=== PATIENT | female | born 1985 | race Caucasian/White ===

== ENCOUNTER 2020-07-03 17:27 | Emergency (ER) | payer OTHER, SELFPAY ==
[2020-07-03 17:38] VITALS: BP 120/76; PULSE 104; RESP 20; TEMP 37.1; O2SAT 98
--- NOTE | 2020-07-03 17:43 | ED.EYEPROB ---
HPI - Eye Problem General Chief complaint: Eye Problems Stated complaint: upper respiratory infection Time Seen by Provider: 07/03/20 17:28 Source: patient Mode of arrival: ambulatory Limitations: no limitations History of Present Illness HPI Narrative: 34-year-old female presents to [facility] with complaints of right eye redness, irritation and purulent drainage since yesterday. Patient does not wear contacts or glasses. Patient denies injury to her eye. Patient reports that she has had a runny nose and postnasal drainage for the past few days. Patient denies cough, shortness of breath, wheezing, fever, body aches, chills, nausea, vomiting or diarrhea. MD chief complaint: eye redness Onset (ago): day(s) (1) Duration: constant Location: right eye Eye Symptoms: redness and discharge Mechanism: none Associated symptoms: none Treatments Prior to Arrival: none Related Data Home Medications Medication Instructions Recorded Confirmed sertraline 50 mg DAILY 07/03/20 07/03/20 Allergies Allergy/AdvReac Type Severity Reaction Status Date / Time No Known Allergies Allergy Unknown Unverified 05/21/19 16:21 Review of Systems Constitutional: Constitutional: Denies chills, Denies fever(s) and Denies weakness Eyes: Comments: right eye erythema, irritation and drainage ENT: Denies dysphagia, Denies vertigo, Denies dizziness, Denies nasal congestion and Denies sore throat Comments: rhinnorhea Cardiovascular: Cardiovascular: Denies chest pain, Denies rapid heart rate, Denies radiating jaw, neck or arm pain and Denies slow heart rate Respiratory: Respiratory: Denies chest congestion, Denies cough and Denies dyspnea Gastrointestinal: Gastrointestinal: Denies abdominal pain, Denies diarrhea, Denies nausea and Denies vomiting Integumentary/Breasts: Skin/Breast: Denies rash Neurologic: Denies vertigo, Denies syncope and Denies focal weakness PMFSH Past Medical History Medical History (Updated 07/03/20 @ 17:49 by Dulce Arce APRN) Anxiety delivery delivered Depression Surgical History Surgical History H/O hemorrhoidectomy Social History Social History (Updated 07/03/20 @ 17:46 by Dulce Arce APRN) Smoking status: Never smoker Gender identity (if verbalized by the patient): Female Comments At time of signature, I agree with nursing past medical, surgical, social and family history. There is no relevant family history pertinent to the presenting complaint. Exam Const: General: healthy appearing, no acute distress and alert Orientation/consciousness: patient oriented x3 HENMT: Head: normal to inspection Ears: external ears normal Face and sinus: normal facial exam Mouth: Yes moist mucous membranes Throat: uvula midline Eyes: Conjunctivae: conjunctival abnormality right conjunctival injection and discharge purulent Pupils: Equal, round and reactive pupils present EOM: EOMs intact bilaterally Direct Ophthalmoscopy: no photophobia Neck: Neck: normal visual inspection and no lymphadenopathy Resp: Effort & Inspection: normal respiratory effort Auscultation: clear to auscultation bilaterally Cardio: Rate: regular rate Rhythm: regular rhythm Skin: General skin exam: normal color Rashes: no rashes Wounds: no wounds Neuro: General: patient oriented x3, moves all extremities and no meningeal signs Psych: Appearance: grossly normal Mental Status: mental status grossly normal Affect: normal affect Attitude: cooperative Thought content: Yes Normal thought content present Course Vital Signs Vital signs: Vital Signs Temperature 37.1 C 07/03/20 17:38 Pulse Rate 104 H 07/03/20 17:38 Respiratory Rate 20 07/03/20 17:38 Blood Pressure 120/76 07/03/20 17:38 Pulse Oximetry 98 07/03/20 17:38 Temperature 37.1 C 07/03/20 17:38 Pulse Rate 104 H 07/03/20 17:38 Respiratory Rate 20 07/03/20 17:38 Blood Pressu
== END 2020-07-03 17:51 | disposition home or self-care (01) ==
PROVIDERS: Emergency Provider Nurse Practitioner Family
DX: H10.9 Unspecified conjunctivitis (principal); F41.9 Anxiety disorder, unspecified; F32.9 Major depressive disorder, single episode, unspecified
CPT/HCPCS: 99213; G0463

== ENCOUNTER 2021-01-17 16:17 | Emergency (ER) | payer OTHER, SELFPAY ==
[2021-01-17 16:25] VITALS: BP 112/73; PULSE 103; RESP 18; TEMP 37.1; O2SAT 99
--- NOTE | 2021-01-17 17:37 | ED.URI ---
HPI - URI/Sore Throat General Chief Complaint: Upper Respiratory Infection Stated Complaint: Sinus History of Present Illness HPI Narrative: This a 35-year-old female comes in complaining of sinus congestion and pressure with hoarseness and a slight cough that is been persistent for more than 10 days patient states that her son had a cold prior to this. She has been taking allergy medicines, decongestants and doing the Geetha pot which this has been day 7 going on day 8 she is having a surgical procedure on January 24 and would like to be checked out to make sure she does not have a sinus infection Related Data Home Medications Medication Instructions Recorded Confirmed sertraline 50 mg PO DAILY 07/03/20 01/17/21 diazepam 5 mg PO PRN PRN 01/17/21 01/17/21 oxycodone-acetaminophen 7.5 tablet PO PRN PRN 01/17/21 01/17/21 Allergies Allergy/AdvReac Type Severity Reaction Status Date / Time No Known Allergies Allergy Unknown Verified 01/17/21 16:21 Review of Systems Review of Systems: Narrative: CONSTITUTIONAL: Denies fever, chills, or sweats. EYES: Denies visual changes, redness, or discharge. ENT: Reports rhinorrhea, congestion, sore throat, or otalgia. CARDIOVASCULAR:Denies chest pain, palpitations, or edema. RESPIRATORY: Denies cough or dyspnea. GASTROINTESTINAL: Denies abdominal pain, nausea, vomiting, or diarrhea. GENITOURINARY: Denies dysuria or hematuria. SKIN:[Denies rash or itching. MUSCULOSKELETAL:Denies back pain, joint pain, or myalgia. NEUROLOGIC: Denies headache, numbness, or weakness. PSYCHIATRIC:Denies anxiety or depression [facility] Past Medical History Medical History (Updated 01/17/21 @ 17:42 by Hipolito Amin NP) Anxiety delivery delivered Depression Surgical History Surgical History H/O hemorrhoidectomy Social History Social History (Updated 07/03/20 @ 17:46 by Dulce Arce APRN) Smoking status: Never smoker Gender identity (if verbalized by the patient): Female Comments At time as signature, I have reviewed and agree with nursing past medical, social, surgical and family history. Please see nursing chart for further information. There is no relevant family history pertinent to the presenting complaint. Exam Narrative: Exam Narrative: GENERAL:Well-appearing, well-nourished, and in no acute distress. HEAD:Normocephalic, atraumatic. EYES: PERRLA ENT: Nares clear, positive rhinorrhea clear yellow. Mucous membranes moist. T-zone pressure NECK: Supple. CHEST: Clear to auscultation. No respiratory distress. HEART: Regular tacky and rhythm. No murmur heard. Normal peripheral pulses. ABDOMEN: Soft, nontender, nondistended, normal active bowel sounds. EXTREMITIES: Normal range of motion. No edema. SKIN: Warm, dry, no rash. NEURO: No focal deficits. Alert and oriented x3. Course Vital Signs Vital signs: Vital Signs Temperature 98.7 F 01/17/21 16:25 Pulse Rate 103 H 01/17/21 16:25 Respiratory Rate 18 01/17/21 16:25 Blood Pressure 112/73 01/17/21 16:25 Pulse Oximetry 99 01/17/21 16:25 Temperature 98.7 F 01/17/21 16:25 Pulse Rate 103 H 01/17/21 16:25 Respiratory Rate 18 01/17/21 16:25 Blood Pressure 112/73 01/17/21 16:25 Pulse Oximetry 99 01/17/21 16:25 Discharge Plan Discharge Clinical Impression: Sinusitis Qualifiers: Sinusitis location: frontal Chronicity: subacute Qualified Code(s): J01.10 - Acute frontal sinusitis, unspecified Pharyngitis Qualifiers: Pharyngitis/tonsillitis etiology: unspecified etiology Qualified Code(s): J02.9 - Acute pharyngitis, unspecified Patient Disposition: Home, Self-Care Condition: Stable Instructions: Antibiotic Form, Sinusitis (ED) Additional Instructions: Also, recommend symptomatic treatment includes: rest, fluids, increase humidity of the air at home. Cough medicine and decongestion of your choice. Recommend Acetaminophen
== END 2021-01-17 17:42 | disposition home or self-care (01) ==
PROVIDERS: Emergency Provider Nurse Practitioner Family
DX: J01.10 Acute frontal sinusitis, unspecified (principal); J02.9 Acute pharyngitis, unspecified; F41.9 Anxiety disorder, unspecified; F32.9 Major depressive disorder, single episode, unspecified
CPT/HCPCS: 99213; G0463